=== PATIENT | male | born 1995 | race Caucasian/White ===

== ENCOUNTER 2020-07-07 06:29 | Emergency (ER) | payer SELFPAY ==
[~2020-07-07] VITALS: Ht 175.3 cm; Wt 59.0 kg
--- NOTE | 2020-07-07 06:30 | NUR ---
PT REFUSING TRIAGE ASSESSMENT AND VITAL SIGNS. DR GAVIRIA MADE AWARE AND WILL SEE PATIENT.
--- NOTE | 2020-07-07 06:31 | NUR ---
MARTIN AT [facility] FOR MEDICAL EVAUALUATION.
--- NOTE | 2020-07-07 06:37 | NUR ---
Patient discharged with v/s stable. Written and verbal after care instructions given and explained. Patient verbalized understanding. Taken in custody. All questions addressed prior to discharge. Advised to follow up with PMD.
== END 2020-07-07 06:37 ==
LOC: MED 06:29
DX: F10.129 Alcohol abuse with intoxication, unspecified (principal); Z02.89 Encounter for other administrative examinations; V98.8XXA Other specified transport accidents, initial encounter; Y93.89 Activity, other specified; Y92.89 Other specified places as the place of occurrence of the external cause; Y99.8 Other external cause status; Y90.9 Presence of alcohol in blood, level not specified
CPT/HCPCS: 99283